=== PATIENT | female | born 1935 | race Caucasian/White ===

== ENCOUNTER 2023-07-09 04:38 | Inpatient (IN) | payer MEDICARE, SELFPAY ==
[2023-07-09] VITALS (15 sets, daily range): BP systolic 105–160; BP diastolic 54–124; BMI 22.1; BMI 23.5
[2023-07-09 01:51] LABS: % Basophils 0.3 % (0-2); % Eosinophils 0.5 % (0-6); % Immature Granulocytes 0.3 % (0-0.5); % Lymphocytes 4.4 % (20.5-51.1); % Monocytes 7.6 % (1.7-9.3); % Neutrophils 86.9 % (42.2-75.2); Absolute Eosinophils 0.1 10^3/uL (0-0.7); Absolute Lymphocytes 0.5 10^3/uL (1.2-3.4); Absolute Monocytes 0.9 10^3/uL (0.1-0.6); Absolute Neutrophils 10.4 10^3/uL (1.4-6.5); Hematocrit 35.2 % (37.0-47.0); Hemoglobin 12.3 g/dL (12.0-16.0); Mean Corp Hgb Conc. 34.9 g/dL (33.0-37.0); Mean Corpuscular Hgb 30.2 pg (27.0-31.0); Mean Corpuscular Volume 86.5 fL (81.0-99.0); Mean Platelet Volume 10.1 fL (7.4-10.4); Nucleated Red Blood Cells % 0 %; Platelet Count 210 10^3/uL (130-400); Red Blood Cell Count 4.07 10^6/uL (4.20-5.40); Red Cell Dist. Width 13.5 % (11.5-14.5); Urine Albumin 1+ (Neg - Trace); Urine Bilirubin Negative (Negative); Urine Character Cloudy (Clear); Urine Color Yellow; Urine Glucose Negative (Negative); Urine Ketone Negative (Negative); Urine Leukocyte 2+ (Negative); Urine Nitrite Positive (Negative); Urine Occult Blood 2+ (Negative); Urine Specific Gravity 1.015 (<1.030); Urine Urobilinogen Negative (Neg - 1+)
[2023-07-09 02:02] LABS: Lactic Acid 2.3 mmol/L (0.7-2.0)
[2023-07-09 02:09] LABS: Urine Amorphous Seen; Urine Squamous Cell >30 /LPF (Few)
[2023-07-09 02:10] LABS: Urine Bacteria Many (Negative); Urine White Cell >100 /HPF (0-5)
[2023-07-09 02:43] LABS: ALT (SGPT) 15 U/L (0-35); AST (SGOT) 22 U/L (14-36); Alkaline Phosphatase 51 U/L (38-126); Blood Urea Nitrogen 35 mg/dl (7-17); Calcium 9.8 mg/dl (8.4-10.2); Carbon Dioxide 23 mmol/L (22-30); Chloride 112 mmol/L (98-107); Estimated Creatinine Clearance 37 ml/min; Glucose 135 mg/dl (70-99); Potassium 4.2 mmol/L (3.5-5.1); Sodium 143 mmol/L (135-145); Total Bilirubin 0.6 mg/dl (0.2-1.3); Total Protein 6.4 g/dl (6.3-8.2); eGFR > 60.00
--- NOTE | 2023-07-09 02:56 | ED.GENMED ---
History of Present Illness
General
Chief Complaint: Weakness
Source: patient and spouse
Exam Limitations: none
Time Seen by Provider: 07/09/23 02:50
Travel History
Have you had any contact with someone who has COVID-19?: No
Do you have any symptoms of coronavirus? Fever > 100 degrees, chills, cough, shortness of breath, sore throat, loss of taste or smell, muscle aches, or headache?: No
History of Present Illness
History of Present Illness:
Patient presents to ED for evaluation secondary to generalized weakness along with fever noted at home today. Patient unfortunately has had similar symptoms in the past, secondary to urinary tract infection. Per spouse, patient has been treated
for UTI on multiple occasions over the past 1 year. Patient has been evaluated by urologist, and has been on prophylactic antibiotics. Denies nausea or vomiting. Denies abdominal pain. Denies difficulty with urination. Denies trauma. Denies
sick contact. Denies loss of appetite.
Past History
Past History
ED Past Medical History: GERD, Hypercholesterolemia, Psychiatric (Anxiety) and Other (UTI's, kidney stones)
ED Past Surgical History: Gynecological (Hysterectomy)
Patient has exhibited threatening behavior?: No
PSI?: No
Social History
Tobacco: Non-smoker
Alcohol: None
Drug: None
Personal:
Living: with family
Employment: Retired
Review of Systems
Review of Systems
Allergies reviewed?: Yes
All Other Systems: ROS reviewed and negative except as documented in HPI and ROS
Constitutional: Reports fever and chills
EENT: Reports no symptoms
Respiratory: Reports no symptoms
Cardiac: Reports no symptoms
ABD/GI: Reports no symptoms; Denies abdominal pain or vomiting
: Reports frequency
Musculoskeletal: Reports no symptoms
Skin: Reports no symptoms
Neurological: Reports no symptoms
Phy Exam
Physical Exam
Physical Exam:
Physical Exam
General: no apparent distress, not acutely ill. afebrile
Head: nc/at. eomi
Neck: supple. normal range of motion.
Heart: s1/s2 regular rate and rhythm, no murmur. equal radial pulses.
Lungs: no acute respiratory distress. clear bilaterally
Abdomen: normal bowel sounds. not tender.
Neuro: alert and oriented. no focal neurological deficits
Skin: no rash
Psychiatric: well kept. interactive and cooperative
Extremities: no edema. no calf tenderness.
Course
Orders/Labs/Results
Orders:
Orders
07/09/23 01:41
Complete Blood Count/With Diff Urgent
Lactate Level [Lactic Acid] Urgent
Urinalysis Reflex To Culture Urgent
Date Specimen was Collected: 07/09/23
Time Specimen was Collected: 01:32
Urine Microscopic Reflex Cult Urgent
Urine Culture Urgent
BILL Source: U
Specimen Description:
Date Specimen was Collected: 07/09/23
Time Specimen was Collected: 01:32
07/09/23 02:19
Comprehensive Metabolic Panel Routine
Comment: REDRAW
07/09/23 02:56
0.9% Sodium Chloride 500 ml [Nss] 500 ml IV BOLUS
Acetaminophen [Tylenol] 650 mg PO NOW STA
CefTRIAXone [Rocephin] 1,000 mg IV NOW STA
07/09/23 03:25
Admit/Transfer Patient As Directed
Co-Sign Provider:
Level of Care: Inpatient admission
Assign to:: Telemetry
Physician / Group: [email or web address]
Diagnosis: sepsis due to UTI
Reason for Telemetry: Other
Other Reason for Telemetry: sepsis due to UTI
Date to Stop Telemetry: 07/11/23
Time to Stop Telemetry: 11:00
Reason for Hospitalization: sepsis due to UTI
Expected length of stay greater than two midnights?: Yes
ELOS- Estimated Length of Stay in days: 3
I certify the patient meets the requirements for IP care: Yes
07/09/23 03:27
Code Status As Directed
Resuscitation Status: Full Code
07/09/23 04:45
Lactated Ringers [Lr] 1,000 ml IV 80 mls/hr
07/09/23 04:45
Activity As Directed
Activity Level: With Assistance
Intake/ Output As Directed
Frequency: Per unit guidelines
Vital Signs As Directed
Frequency: Per unit guidelines
DX Deep Vein Thrombosis Video Routine
07/09/23 05:39
Complete Blood Count/No Diff IN AM
Comprehensive Metabolic Panel IN AM
Lactic Acid Q4H
Comment: repeat q4 hours x 4 or until less than 2 mmol/L
07/09/23 Breakfast
Cholesterol Lowering
At Your Request: Non-Participating
Cholesterol Lowering: Sodium, 2 Gram
07/09/23 08:00
Acetaminophen [Tylenol/Feverall] 650 mg RECTAL Q4HPRN PRN
Acetaminophen [Tylenol] 650 mg PO Q4HPRN PRN
Aspirin Low Dose EC [Aspir Low (Enteric Coated)] 81 mg PO DAILY
Fenofibrate 145 [Tricor] 72.5 mg PO DAILY
07/09/23 09:26
Lactic Acid Q4H
Comment: repeat q4 hours x 4 or until less than 2 mmol/L
07/09/23 18:00
Atorvastatin [Lipitor] 20 mg PO QPM
Enoxaparin Sodium [Lovenox] 40 mg SC QPM
Metoprolol Xl [Toprol Xl] 50 mg PO QPM
07/10/23 04:00
CefTRIAXone [Rocephin] 1,000 mg IV Q24H
07/11/23 11:00
DC Protocol for Telemetry ONCE
Abnormal Lab Results
07/09/23 07/09/23
01:41 02:19
WBC 12.0 H 10^3/uL
(4.8-10.8)
RBC 4.07 L 10^6/uL
(4.20-5.40)
Hct 35.2 L %
(37.0-47.0)
Absolute Neuts (auto) 10.4 H 10^3/uL
(1.4-6.5)
Absolute Lymphs (auto) 0.5 L 10^3/uL
(1.2-3.4)
Absolute Monos (auto) 0.9 H 10^3/uL
(0.1-0.6)
Neutrophils % 86.9 H %
(42.2-75.2)
Lymphocytes % 4.4 L %
(20.5-51.1)
Chloride 112 H mmol/L
(98-107)
BUN 35 H mg/dl
(7-17)
Glucose 135 H mg/dl
(70-99)
Lactic Acid 2.3 H mmol/L
(0.7-2.0)
Ur Occult Blood Reflex 2+ A
(Negative)
Urine Nitrite (Reflex) Positive A
(Negative)
Leukocyte Esterase Rfl 2+ A
(Negative)
Urine WBC (Reflex) >100 A /HPF
(0-5)
Urine Bacteria (Reflex) Many A
(Negative)
Urine Albumin (Reflex) 1+ A
(Neg - Trace)
07/09/23 01:41
07/09/23 02:19
Vital Signs
Initial and Last Documented VS:
Initial Vital Signs
BP
160/75
07/09/23 01:23
Last Documented Vital Signs
Temp Pulse Resp BP Pulse Ox
98.4 F 72 24 149/77 98
07/10/23 11:47 07/10/23 11:47 07/10/23 11:47 07/10/23 11:47 07/10/23 11:47
MDM/Problems Addressed
MDM/Problems Addressed:
History and exam concerning for sepsis, likely secondary to recurrent urinary tract infection. Will obtain CT abdomen pelvis to evaluate for potential obstructing stone with infection.
*Critical Care Note
Total Time (30-74mins, 75-104mins- exclusive of procedures): Not Applicable
ED Attending Note
-
Portions of this chart may have been created with voice recognition software.� Occasional wrong word or��sound alike� substitutions may have occurred due to the inherent limitations of voice recognition software.
Discharge Plan
Departure
Patient Disposition: Admit
Date of Disposition: 07/09/23
Time of Disposition: 03:00
Admit to: Med/Surg
Presentation/result/management discussed w/ accepting MD/DO: Hospitalist
Discharge Problem:
Sepsis, Acute UTI
Interventions
Interventions:
*Risk Screen - Suicide Last Done: 07/09/23 01:24
*General Assessment Last Done: 07/09/23 01:24
*Neglect/Abuse Screening Last Done: 07/09/23 01:24
ED- Fall Risk Assessment Last Done: 07/09/23 01:33
*ED COVID-19 Vaccine History Last Done: 07/09/23 01:33
*Nursing Disposition Last Done: 07/09/23 16:02
ED- Cardiac Assessment Last Done: 07/09/23 01:33
ED- Neurological Assessment Last Done: 07/09/23 01:33
ED- Pulmonary Assessment Last Done: 07/09/23 01:33
Discharge Date and Time
Discharge Date/Time: 07/09/23 16:03
--- NOTE | 2023-07-09 03:17 | HPS.HSE ---
Family Physician
-
Family Physician: Gale Mckay
Chief Complaint
-
fever and weakness
History of Present Illness
HPI
87F HX frequent UTI wiht cabello ABx sensitive E Coli UCx seeen at ER for evalaution of weakness and fever.
Weakness and fever.
- started today at home
- weakness and and fever is usual presentation of prior UTI
- Denied frequency, dysuria or urgency
- on prophylactic ABx for UTI
ROS:
Denies nausea or vomiting. Denies abdominal pain.
Medical History
Past Medical History
Past Medical History: Reports GERD, HTN, Hypercholesterolemia and Other (frequent UTI )
Past Surgical History: Reports Gynocological (hysterectomy )
Social History
Tobacco: Non-smoker
Alcohol: None
Drug: None
Family History
Family History: Not pertinent
Allergies / Home Medications
Allergies reflects when Allergies were last updated in [facility].
Home Medications with original date entered in [facility]
Allergy/Medication List:
Allergies
Allergy/AdvReac Type Severity Reaction Status Date / Time
Sulfa (Sulfonamide AdvReac Mild vomiting Verified 11/09/22 20:15
Antibiotics)
[Sulfa(Sulfonamide
Antibiotics)]
Home Medications
simvastatin 40 mg tablet 20 mg PO QPM High cholesterol 11/22/11
metoprolol succinate 50 mg tablet,extended release 24 hr (Toprol XL) 50 mg PO QPM Blood pressure 08/21/19
thiamine HCl (vitamin B1) 100 mg tablet 250 mg PO DAILY Supplement 09/14/19
aspirin 81 mg tablet,delayed release 81 mg PO DAILY Blood Clot Prevention/Tx 07/06/22
fenofibrate nanocrystallized 145 mg tablet (Tricor) 72.5 mg PO DAILY High Cholesterol 07/06/22
omeprazole 40 mg capsule,delayed release 40 mg PO PRN PRN GERD 07/06/22
acetaminophen 650 mg tablet,extended release (Tylenol Arthritis Pain) 650 mg PO DAILY Pain 11/10/22
celecoxib 200 mg capsule (Celebrex) 200 mg PO DAILY PRN pain 11/10/22
cranberry extract-vitamin C 250 mg-60 mg capsule 1 cap PO DAILY Urinary Issue 11/10/22
cyanocobalamin (vitamin B-12) 1,000 mcg tablet 1,000 mcg PO DAILY Supplement 11/10/22
pyridoxine (vitamin B6) 100 mg tablet 100 mg PO DAILY Supplement 11/10/22
vit C 250 mg-vit E 90 mg-zinc 40 mg-copper 1 [id number] capsule (PreserVision AREDS-2) 1 tab PO BID Supplement 11/10/22
ascorbic acid (vitamin C) 500 mg tablet (Vitamin C) 500 mg PO BID #60 tabs 11/12/22
cephalexin 500 mg capsule 500 mg PO BID 11 days #22 caps 11/12/22
methenamine hippurate 1 gram tablet 1 g PO BID #60 tabs 11/12/22
Review of Systems
-
Constitutional: Reports Fever and Fatigue
EENT: Reports No Symptoms
Respiratory: Reports No Symptoms
Cardiac: Reports No Symptoms
Abdomen/GI: Reports No Symptoms
: Reports No Symptoms
Musculoskeletal: Reports No Symptoms
Skin: Reports No Symptoms
Neurological: Reports Weakness
Endocrine: Reports No Symptoms
Hematologic/Lymphatic: Reports No Symptoms
Psych: Reports No Symptoms
Physical Exam
Vital Signs
Vital Signs
Temp Pulse Resp BP Pulse Ox
100.7 F H 92 32 143/67 95
07/09/23 01:24 07/09/23 02:15 07/09/23 02:15 07/09/23 02:00 07/09/23 02:15
Physical Exam
General: Well Developed, Well Nourished, No Apparent Distress, Comfortable, Conversant and Fever (T 100.7 )
HEENT: NormoCephalic, Anicteric and Moist mucous membranes
Respiratory: Clear and Other (tachypnic )
Cardiac: S1/S2 and Regular Rhythm
Breast: Deferred by me
GI: Soft, Non Tender, Non Distended and Normal Bowel Sounds
Genito-urinary: No costovertebral tender
Musculoskeletal: No Edema
Skin: Warm
Neuro: AO x 3
Psych: Calm
Laboratory Results
-
07/09/23 01:41
07/09/23 02:19
Laboratory Results
Lactic Acid 2.3 mmol/L (0.7-2.0) H 07/09/23 01:41
Total Bilirubin 0.6 mg/dl (0.2-1.3) 07/09/23 02:19
AST 22 U/L (14-36) 07/09/23 02:19
ALT 15 U/L (0-35) 07/09/23 02:19
Alkaline Phosphatase 51 U/L (38-126) 07/09/23 02:19
Data Reviewed
-
Lab Data: Labs Reviewed by me
Old Records: Reviewed
Impression/Plan
-
Reviewed VS: T 100.7 tachypneic RR 32 otherwise unremarkable
Data
WCC 12
BUN 34
Cr 0.8
BG 135
LA 2.3
POS UA WCC > 100 , 2+LE
CT Abd/pel Without Iv Or Oral
- Mild nephric stranding on each side, which may be related to senescent change or pyelonephritis (although evaluation is limited without intravenous contrast).
- Mild bilateral hydronephrosis, right greater than left, similar compared to prior examinations. Transition point at the ureteropelvic junction, and obstruction may be functional or congenital. No obstructing stones are appreciated.
- 3. 9 mm lung nodule at the left lung base, not significantly changed compared to 07/06/2022, however new compared to a prior CT dated 08/20/2014. As per Fleischner Society recommendations, follow-up CT or PET/CT should be considered in 3-6 months.
Last hospitalist admission: 11/10/22 - 11/12/22
Principal Diagnosis:
Recurrent urinary tract infection (UTI) with bilateral pyelonephritis
Pansensitive E coli bacteremia due to above
Incidental discovery of left lung nodule 9 mm
ASSESSMENT & PLAN
Pending Rx reconciliation
Sepsis due to recurrent UTI
Significant pyuria
Denied frequency, dysuria or urgency
No prior CT evidence of kidney stone
HX recurrent UTI with suspected BL pyelonephritis in 2022
- f/u T, WCC and UCx
- LR IVF
- IV Ceftriaxone
- Held methenamine hippurate
- Tylenol prn
HX GERD
- Omeprazole
Hypercholesterolemia
- on Tricor
- on ASA
Anxiety
Incidental finding of left lung nodule
3. 9 mm lung nodule at the left lung base, not significantly changed compared to 07/06/2022
- Op f/u
DVT prophylaxis: Lovenox
Full code
IP TLM
[2023-07-09] MEDS: NSS 500 IV (03:34)
[2023-07-09] MEDS: TYLENOL 650 MG PO (03:37)
[2023-07-09] MEDS: ROCEPHIN 1000 MG IV (03:38)
[2023-07-09 05:51] LABS: Hematocrit 33.3 % (37.0-47.0); Hemoglobin 11.4 g/dL (12.0-16.0); Mean Corp Hgb Conc. 34.2 g/dL (33.0-37.0); Mean Corpuscular Hgb 30.1 pg (27.0-31.0); Mean Corpuscular Volume 87.9 fL (81.0-99.0); Platelet Count 200 10^3/uL (130-400); Red Blood Cell Count 3.79 10^6/uL (4.20-5.40); Red Cell Dist. Width 13.5 % (11.5-14.5); White Blood Cell Count 11.7 10^3/uL (4.8-10.8)
[2023-07-09 06:03] LABS: Lactic Acid 1.9 mmol/L (0.7-2.0)
[2023-07-09] MEDS: FLUSH (NSS) 1 FLUSH IV (06:04)
[2023-07-09] MEDS: LR 1000 IV ×2 (06:04→22:15)
[2023-07-09 06:15] LABS: AST (SGOT) 23 U/L (14-36); Albumin 3.6 g/dl (3.5-5.0); Blood Urea Nitrogen 32 mg/dl (7-17); Calcium 9.6 mg/dl (8.4-10.2); Carbon Dioxide 21 mmol/L (22-30); Estimated Creatinine Clearance 43 ml/min; Glucose 122 mg/dl (70-99); Potassium 4.3 mmol/L (3.5-5.1); Total Bilirubin 0.5 mg/dl (0.2-1.3); Total Protein 6.1 g/dl (6.3-8.2); eGFR > 60.00
[2023-07-09 06:23] LABS: ALT (SGPT) 13 U/L (0-35); Alkaline Phosphatase 42 U/L (38-126); Chloride 113 mmol/L (98-107); Sodium 143 mmol/L (135-145)
[2023-07-09] MEDS: ASPIR LOW (ENTERIC COATED) 81 MG PO (08:52)
[2023-07-09] MEDS: TRICOR 72.5 MG PO (08:52)
[2023-07-09 09:46] LABS: Lactic Acid 1.3 mmol/L (0.7-2.0)
--- NOTE | 2023-07-09 10:57 | W.PN.HOSP.TC ---
Today's Communication/Plan
-
IV antibiotics pending cultures
Physical therapy evaluation
Assessment / Plan
Assessment / Plan
Impression:
Recurrent UTI. Suspect pyonephritis
Sepsis ruled out.
Chronic bilateral right greater than left hydronephrosis
Failure to thrive secondary to above with falls and acute on chronic ambulatory dysfunction
Pulmonary nodule is incidental finding
Conditions prior to admit:
Essential hypertension
GERD.
Dyslipidemia
Anxiety.
Plan:
Recurrent UTI.
Prior urine culture with pansensitive E. coli.
On Hiprex 1 g daily, had been interrupted due to delayed prescription.
Nontoxic-appearing with no systemic symptoms
No flank tenderness
CT scan with chronic bilateral hydronephrosis
Continue empiric antibiotics ceftriaxone pending cultures
Will resume Hiprex once course of antibiotics completed.
Acute on chronic ambulatory dysfunction.
Cognitive status at the baseline
No focal findings on exam
Using cane/walker at the baseline
Physical therapy evaluation.
Essential hypertension
Continue Toprol
Dyslipidemia on simvastatin
9 mm lung nodule at the left lung base, not significantly changed compared to 07/06/2022, however new compared to a prior CT dated 08/20/2014. As per Fleischner Society recommendations, follow-up CT or PET/CT should be considered in 3-6 months.
Full code
DVT prophy
Anticipated Discharge: 24 - 48 hours
Subjective/Interval History
-
Date of Service: July 09, 2023
Objective Data
-
Labs:
Laboratory Results
07/09/23 07/09/23 07/09/23
01:41 02:19 05:39
WBC 12.0 H 11.7 H
Hgb 12.3 11.4 L
Hct 35.2 L 33.3 L
Plt Count 210 200
Sodium Cancelled 143 143
Potassium Cancelled 4.2 4.3
Chloride Cancelled 112 H 113 H
Carbon Dioxide Cancelled 23 21 L
BUN Cancelled 35 H 32 H
Creatinine Cancelled 0.8 0.7
Glucose Cancelled 135 H 122 H
Calcium Cancelled 9.8 9.6
Total Bilirubin Cancelled 0.6 0.5
AST Cancelled 22 23
ALT Cancelled 15 13
Alkaline Phosphatase Cancelled 51 42
Vital Signs:
Vital Signs
Temp Pulse Resp BP Pulse Ox
98.4 F 71 18 138/63 99
07/09/23 08:55 07/09/23 08:55 07/09/23 08:55 07/09/23 08:55 07/09/23 08:59
Physical Exam
-
General: Well Developed and No Apparent Distress
HEENT: Normocephalic, Atraumatic and Moist Mucous Membranes
Respiratory: Clear to Auscultation
Cardiac: Regular Rhythm and S1/S2; Negative Murmur, Rub or Gallop
GI: Soft, Nontender, Nondistended and Normal Bowel Sounds; Negative Organomegaly
Rectal: Deferred by Provider
Musculoskeletal: No Clubbing, No Cyanosis and No Edema
Skin: Negative Rash
Neuro: Awake, Alert, Oriented, AO x 3 and Nonfocal/Grossly Intact
--- NOTE | 2023-07-09 16:56 | PTCARENOTE ---
Arrived to unit from ED and pulled over to bed. Oriented to room. Call medina within reach.
[2023-07-09] MEDS: TOPROL XL 50 MG PO (17:00)
[2023-07-09] MEDS: LIPITOR 20 MG PO (17:00)
[2023-07-09] MEDS: LOVENOX 40 MG SC (17:03)
[2023-07-10] VITALS (7 sets, daily range): BP systolic 117–149; BP diastolic 52–77; PULSE 72; O2SAT 97; BMI 23.7
[2023-07-10] MEDS: ROCEPHIN 1000 MG IV (03:26)
[2023-07-10] MEDS: FLUSH (NSS) 1 FLUSH IV ×2 (03:27→03:34)
[2023-07-10] MEDS: STERILE WATER FOR INJECTION 10 ML IV (03:27)
[2023-07-10] MEDS: TRICOR 72.5 MG PO (09:18)
[2023-07-10] MEDS: ASPIR LOW (ENTERIC COATED) 81 MG PO (09:19)
[2023-07-10] MEDS: LR 1000 IV (09:23)
--- NOTE | 2023-07-10 15:12 | W.PN.HOSP.TC ---
Today's Communication/Plan
-
Afebrile.
Stable mental status.
Urine culture with gram-negative bacilli pending final.
Continue IV antibiotics
Wean off IV fluids
Physical therapy assessment
Discharge home likely over the next 24 hours.
Assessment / Plan
Assessment / Plan
Impression:
Recurrent UTI. Suspect pyonephritis
Sepsis ruled out.
Chronic bilateral right greater than left hydronephrosis
Failure to thrive secondary to above with falls and acute on chronic ambulatory dysfunction
Pulmonary nodule is incidental finding
Conditions prior to admit:
Essential hypertension
GERD.
Dyslipidemia
Anxiety.
Plan:
Recurrent UTI.
Prior urine culture with pansensitive E. coli.
On Hiprex 1 g daily, had been interrupted due to delayed prescription.
Nontoxic-appearing with no systemic symptoms
No flank tenderness
CT scan with chronic bilateral hydronephrosis
Continue empiric antibiotics ceftriaxone pending cultures
Will resume Hiprex once course of antibiotics completed.
Acute on chronic ambulatory dysfunction.
Cognitive status at the baseline
No focal findings on exam
Using cane/walker at the baseline
Physical therapy evaluation.
Essential hypertension
Continue Toprol
Dyslipidemia on simvastatin
9 mm lung nodule at the left lung base, not significantly changed compared to 07/06/2022, however new compared to a prior CT dated 08/20/2014. As per Fleischner Society recommendations, follow-up CT or PET/CT should be considered in 3-6 months.
Full code
DVT prophy
Anticipated Discharge: 24 - 48 hours
Subjective/Interval History
-
Date of Service: July 10, 2023
Objective Data
-
Vital Signs:
Vital Signs
Temp Pulse Resp BP Pulse Ox
98.4 F 72 24 149/77 98
07/10/23 11:47 07/10/23 11:47 07/10/23 11:47 07/10/23 11:47 07/10/23 11:47
I&O
07/09/23 07/10/23 07/11/23
06:59 06:59 06:59
Intake Total 1040 / 1040
Balance 1040 / 1040
Physical Exam
-
General: Well Developed and No Apparent Distress
HEENT: Normocephalic, Atraumatic and Moist Mucous Membranes
Respiratory: Clear to Auscultation
Cardiac: Regular Rhythm and S1/S2; Negative Murmur, Rub or Gallop
GI: Soft, Nontender, Nondistended and Normal Bowel Sounds; Negative Organomegaly
Rectal: Deferred by Provider
Musculoskeletal: No Clubbing, No Cyanosis and No Edema
Skin: Negative Rash
Neuro: Awake, Alert, Oriented, AO x 3 and Nonfocal/Grossly Intact
--- NOTE | 2023-07-10 16:53 | PTCARENOTE ---
Pt awake and alert, oriented to self/place /birthdate; confused to date; very forgetful; anxious and tearful at times. GARCIA; OOB to chair/BSC with assist x1/walker, sl unsteady w/OOb activity; denies weakness/dizziness. VSS. Telemetry:NSR. On
room air-pulse ox 99%, no SOB noted. Abd soft, rounded, vasquez :PO well, appetite fair. Voids clear yellow urine on BSC, denies discomfort. Resting in chair at present, no c/o. Will continue to monitor.
--- NOTE | 2023-07-10 17:54 | CM ---
Alert awake oriented patient who lives with her Stevan ( he is in ED also)who lives in a 2 story home with 5 step to enter and 25 steps to bed and bathroom. He is independent in all activities of daily living.She was offered VN he
declined need.
VN hx / No SNF history
Pharmacy [facility]
PCP DR Mckay
PLAN Home Declined VN
[2023-07-10] MEDS: LOVENOX 40 MG SC (17:55)
[2023-07-10] MEDS: TOPROL XL 50 MG PO (17:55)
[2023-07-10] MEDS: LIPITOR 20 MG PO (17:55)
[2023-07-11 03:30] VITALS: BP 126/61
[2023-07-11] MEDS: FLUSH (NSS) 10 FLUSH IV ×2 (04:41)
[2023-07-11] MEDS: ROCEPHIN 1000 MG IV (04:43)
[2023-07-11] MEDS: STERILE WATER FOR INJECTION 10 ML IV (04:43)
[2023-07-11 07:23] VITALS: BP 102/47
[2023-07-11 08:47] LABS: % Basophils 0.7 % (0-2); % Eosinophils 1.9 % (0-6); % Immature Granulocytes 0.4 % (0-0.5); % Lymphocytes 20.9 % (20.5-51.1); % Monocytes 13.5 % (1.7-9.3); % Neutrophils 62.6 % (42.2-75.2); Absolute Eosinophils 0.1 10^3/uL (0-0.7); Absolute Lymphocytes 1.2 10^3/uL (1.2-3.4); Absolute Monocytes 0.8 10^3/uL (0.1-0.6); Absolute Neutrophils 3.6 10^3/uL (1.4-6.5); Hematocrit 34.9 % (37.0-47.0); Hemoglobin 11.5 g/dL (12.0-16.0); Mean Corpuscular Hgb 29.3 pg (27.0-31.0); Mean Corpuscular Volume 88.8 fL (81.0-99.0); Mean Platelet Volume 10.1 fL (7.4-10.4); Nucleated Red Blood Cells % 0 %; Platelet Count 224 10^3/uL (130-400); Red Blood Cell Count 3.93 10^6/uL (4.20-5.40); Red Cell Dist. Width 13.3 % (11.5-14.5); White Blood Cell Count 5.7 10^3/uL (4.8-10.8)
[2023-07-11] MEDS: TRICOR 72.5 MG PO (08:48)
[2023-07-11] MEDS: ASPIR LOW (ENTERIC COATED) 81 MG PO (08:48)
--- NOTE | 2023-07-11 08:54 | PTCARENOTE ---
pt aox2-3, forgetful. pt denies pain, sob, n/v. oob to chair eating breakfast, fatimah medina in reach
[2023-07-11 09:03] LABS: Blood Urea Nitrogen 18 mg/dl (7-17); Calcium 9.7 mg/dl (8.4-10.2); Carbon Dioxide 27 mmol/L (22-30); Chloride 108 mmol/L (98-107); Estimated Creatinine Clearance 37 ml/min; Glucose 94 mg/dl (70-99); Potassium 3.9 mmol/L (3.5-5.1); Sodium 141 mmol/L (135-145); eGFR > 60.00
[2023-07-11 15:58] VITALS: BP 120/71
--- NOTE | 2023-07-11 16:23 | W.DS.TRANS ---
DC Summary - Mail Clerk Bills
-
Discharge Instructions:
Discharge Diagnosis/Procedures UTI
Diet Regular
Instructions:
Stand-Alone Forms:
Changes to Home Medications: No
Discharge Medications:
DC Medications w/original date entered in [employer]
simvastatin 40 mg tablet 40 mg PO QPM High cholesterol 11/22/11
metoprolol succinate 50 mg tablet,extended release 24 hr (Toprol XL) 50 mg PO QPM Blood pressure 08/21/19
thiamine HCl (vitamin B1) 100 mg tablet 100 mg PO DAILY Supplement 09/14/19
aspirin 81 mg tablet,delayed release 81 mg PO DAILY Blood Clot Prevention/Tx 07/06/22
fenofibrate nanocrystallized 145 mg tablet (Tricor) 145 mg PO DAILY High Cholesterol 07/06/22
vit C 250 mg-vit E 90 mg-zinc 40 mg-copper 1 [id number] capsule (PreserVision AREDS-2) 1 tab PO DAILY Supplement 11/10/22
ascorbic acid (vitamin C) 500 mg tablet (Vitamin C) 500 mg PO BID Supplement 07/09/23
cephalexin 500 mg capsule 500 mg PO BID #10 caps 07/11/23
methenamine hippurate 1 gram tablet 1 g PO DAILY URINARY INFECTION PREVENT #30 tabs 07/11/23
Home Medication Changes
Pending Results: No
--- NOTE | 2023-07-11 16:31 | CM ---
MD entered order for discharge.
Pt declined VN .
Family will drive her home.
PLAN Home no needs
== END 2023-07-11 18:07 | disposition home or self-care (01) | DRG 690 ==
LOC: 4 EAST ACU 04:38
PROVIDERS: Emergency Medicine; ADMITTING PHYSICIAN Internal Medicine; ATTENDING PHYSICIAN Internal Medicine; EMERGENCY PHYSICIAN Emergency Medicine; FAMILY PHYSICIAN Internal Medicine
DX: N39.0 Urinary tract infection, site not specified (principal); N13.6 Pyonephrosis; R62.7 Adult failure to thrive; R91.1 Solitary pulmonary nodule; I10 Essential (primary) hypertension; K21.9 Gastro-esophageal reflux disease without esophagitis; E78.00 Pure hypercholesterolemia, unspecified; F41.9 Anxiety disorder, unspecified; Z68.23 Body mass index [BMI] 23.0-23.9, adult
CPT/HCPCS: 80048; 80053; 81003; 81015; 83605; 85025; 85027; 87077; 87086; 87186; 90677; 97162; 99285; G0009

== ENCOUNTER 2023-08-23 07:09 | Emergency (ER) | payer MEDICARE, SELFPAY ==
[2023-08-23 07:17] VITALS: BP 128/56
[2023-08-23 09:29] LABS: Urine Albumin 1+ (Neg - Trace); Urine Bilirubin Negative (Negative); Urine Character Very Cloudy (Clear); Urine Color Yellow; Urine Glucose Negative (Negative); Urine Ketone Negative (Negative); Urine Leukocyte 2+ (Negative); Urine Nitrite Negative (Negative); Urine Occult Blood 3+ (Negative); Urine Urobilinogen Negative (Neg - 1+)
[2023-08-23 09:35] LABS: Urine Bacteria Few (Negative); Urine Red Blood Cell 30-40 /HPF (0-2); Urine White Cell 80-90 /HPF (0-5)
[2023-08-23] MEDS: MONUROL 3 GM PO (10:06)
--- NOTE | 2023-08-23 10:08 | ED.GENMED ---
History of Present Illness
General
Chief Complaint: Urinary Symptoms
Source: patient
Exam Limitations: none
Time Seen by Provider: 08/23/23 09:11
History of Present Illness
History of Present Illness:
87-year-old female who presents with dysuria. Patient with long history of urinary tract fractions and has been followed by urology. Patient denies fevers or flank pain. Daughter states she typically comes in once she gets symptoms and develops
fevers. This time she only had the burning with urination. Daughter did give her a dose of Tylenol. No vomiting. No flank pain. No abdominal pain. Currently during my history she has no symptoms. She has been taking preventative medications
but daughter wonders if it is working.
Past History
Past History
ED Past Medical History: GERD, HTN, Hypercholesterolemia, Psychiatric (Anxiety) and Other (UTI's, kidney stones)
ED Past Surgical History: Gynecological (Hysterectomy)
Patient has exhibited threatening behavior?: No
PSI?: No
Social History
Tobacco: Non-smoker
Alcohol: None
Drug: None
Personal:
Living: with family
Employment: Retired
Phy Exam
Physical Exam
Physical Exam:
CONSTITUTIONAL Patient alert and oriented to person, place and time. Well-appearing. Vital signs reviewed.
HEAD atraumatic, normocephalic.
EYES eyelids normal to inspection, Extraocular muscles intact, Conjunctiva normal, Sclera normal.
NECK normal range of motion, Trachea midline, no jugular venous distention.
RESPIRATORY CHEST No respiratory distress noted, Chest expansion equal
ABDOMEN abdomen nontender, Bowel sounds normal. No distention.
BACK kyphotic, no CVA tenderness
UPPER EXTREMITY range of motion normal, Motor strength normal, no cyanosis, no edema.
LOWER EXTREMITY range of motion normal, Motor strength normal, no cyanosis, no edema.
NEURO Speech normal, No focal motor deficits, Jason coma scale 15, Memory normal, Cranial Nerves intact to screening exam.
SKIN skin warm, dry, and normal in color.
PSYCHIATRIC patient oriented to person place and time, Normal affect.
Course
Orders/Labs/Results
Orders:
Orders
08/23/23 09:26
Urinalysis Reflex To Culture Urgent
Date Specimen was Collected: 08/23/23
Time Specimen was Collected: 07:18
Urine Microscopic Reflex Cult Urgent
Urine Culture Urgent
BILL Source: U
Specimen Description:
Date Specimen was Collected: 08/23/23
Time Specimen was Collected: 07:18
08/23/23 09:49
Fosfomycin [Monurol] 3 gm PO ONCE ONE
Abnormal Lab Results
08/23/23
09:26
Ur Occult Blood Reflex 3+ A
(Negative)
Leukocyte Esterase Rfl 2+ A
(Negative)
Urine RBC 30-40 A /HPF
(0-2)
Urine WBC (Reflex) 80-90 A /HPF
(0-5)
Urine Bacteria (Reflex) Few A
(Negative)
Urine Albumin (Reflex) 1+ A
(Neg - Trace)
Vital Signs
Initial and Last Documented VS:
Initial Vital Signs
Temp Pulse Resp BP Pulse Ox
98.0 F 69 17 128/56 98
08/23/23 07:17 08/23/23 07:17 08/23/23 07:17 08/23/23 07:17 08/23/23 07:17
Last Documented Vital Signs
Temp Pulse Resp BP Pulse Ox
98.0 F 69 17 128/56 98
08/23/23 07:17 08/23/23 07:17 08/23/23 07:17 08/23/23 07:17 08/23/23 07:17
MDM/Problems Addressed
MDM/Problems Addressed:
Urinary tract infection based
*Pulse Oximetry
Patient hypoxic: no
*Critical Care Note
Total Time (30-74mins, 75-104mins- exclusive of procedures): Not Applicable
Data Reviewed
Review of Other/Old Records Reveals: Labs (Previous cultures reveal pansensitive E. coli)
Source: patient
Prescriptions/Medications Considered But Not Given:
Consider cephalosporin but will trial fosfomycin
Patient Management
Escalation/DeEscalation of care consider admission/obs:
Patient peers very well. She is not febrile. No evidence of pyelonephritis. Previous cultures reviewed revealing susceptible E. coli. Will treat with fosfomycin. Okay for discharge and outpatient follow-up. Recommended repeat urinalysis to see
if it clears as well as follow-up with urology
ED Attending Note
-
Portions of this chart may have been created with voice recognition software.� Occasional wrong word or��sound alike� substitutions may have occurred due to the inherent limitations of voice recognition software.
Discharge Plan
Departure
Patient Disposition: Home (Routine Discharge)
Date of Disposition: 08/23/23
Time of Disposition: 10:14
Patient with high blood pressure during this ER visit?: No
Discharge Problem:
Acute UTI
Instructions: Urinary Tract Infection, Adult (DC)
Prescriptions:
No Action
simvastatin 40 MG tablet
40 mg PO QPM
metoprolol succinate [Toprol XL] 50 MG tablet extended release 24 hr
50 mg PO QPM
thiamine HCl (vitamin B1) 100 mg Tablet
100 mg PO DAILY
aspirin 81 mg Tablet,Delayed Release (Dr/Ec)
81 mg PO DAILY
fenofibrate nanocrystallized [Tricor] 145 mg Tablet
145 mg PO DAILY
PreserVision AREDS-2 250-90-40-1 mg Capsule
1 tab PO DAILY
ascorbic acid (vitamin C) [Vitamin C] 500 mg tablet
500 mg PO BID
cephalexin 500 mg Capsule
500 mg PO BID Qty: 10 0RF
methenamine hippurate 1 gram tablet
1 g PO DAILY Qty: 30 0RF
Rx Instructions:
start with completion Keflex
Referrals:
Gale Mckay MD [Family Provider] -
Activity Restrictions/Additional Instructions:
You were given fosfomycin as treatment for your urinary tract infection. Please see your doctor in the next 2 to 3 days for follow-up and reevaluation. Return immediately for vomiting, abdominal pain, back pain, fevers or any other concerns.
Interventions
Interventions:
*General Assessment Last Done: 08/23/23 07:18
*ED COVID-19 Vaccine History Last Done: 08/23/23 07:18
ED-Female Genitourinary Assessment Last Done: 08/23/23 10:11
Discharge Date and Time
Print Language: [id number]
[2023-08-23 10:22] VITALS: BP 131/68
== END 2023-08-23 10:24 | disposition home or self-care (01) ==
LOC: EMR 07:09
PROVIDERS: Emergency Medicine; EMERGENCY PHYSICIAN Emergency Medicine; FAMILY PHYSICIAN Internal Medicine
DX: N39.0 Urinary tract infection, site not specified (principal)
CPT/HCPCS: 99283; 81003; 81015; 87086